=== PATIENT | male | born 1970 | race Two or more races ===

== ENCOUNTER 2017-09-16 17:07 | Emergency (ER) | payer SELFPAY ==
[~2017-09-16] VITALS: Ht 157.5 cm; Wt 74.8 kg
--- NOTE | 2017-09-16 17:10 | NUR ---
PT GENARO FROM THE [facility] TOER BED 11. HERE FOR ETOH. NO OBVIOUS TRAUMA NOTED. PLACED ON MONITOR. STABLE VITALS. AWAITING MD BISWAS.
--- NOTE | 2017-09-16 17:18 | NUR ---
[employer] NURSE AT BEDSIDE FOR EVAL.
[2017-09-16 17:38] LABS: BASOPHILS % (AUTO) 0.7 % (0.0-2.0); EOSINOPHILS # (AUTO) 0.1 /CMM (0.0-0.7); EOSINOPHILS % (AUTO) 2.1 % (0.0-6.0); HEMATOCRIT 41 % (39-51); HEMOGLOBIN 14.3 g/dL (13.5-17.5); LYMPHOCYTES # (AUTO) 1.8 /CMM (0.8-4.8); LYMPHOCYTES % (AUTO) 34.1 % (20.0-44.0); MEAN CORPUSCULAR HEMOGLOBIN 34 PG (26.0-33.0); MEAN CORPUSCULAR HGB CONC 35 g/dl (31.0-36.0); MEAN CORPUSCULAR VOLUME 97 fL (80-96); MONOCYTES # (AUTO) 0.5 /CMM (0.1-1.30); MONOCYTES % (AUTO) 10.2 % (2.0-12.0); NEUTROPHILS # (AUTO) 2.8 /CMM (1.8-8.9); NEUTROPHILS % (AUTO) 52.9 % (43.0-81.0); PLATELET COUNT (AUTO) 189 /CMM (150-450); RDW COEFFICIENT OF VARIATION 12.6 (11.5-15.0); RED BLOOD CELL COUNT(AUTO) 4.18 MIL/uL (4.5-6.0); WHITE BLOOD COUNT (AUTO) 5.3 K/uL (4.3-11.0)
[2017-09-16 18:01] LABS: CALCIUM, SERUM 8.5 mg/dL (8.5-10.1); CREATININE 0.7 mg/dL (0.6-1.3); POTASSIUM 3.5 mmol/L (3.5-5.1)
[2017-09-16 18:04] LABS: ALBUMIN 3.5 g/dL (3.4-5.0); BILIRUBIN,DIRECT 0.1 mg/dL (0.0-0.2); BILIRUBIN,TOTAL 0.4 mg/dL (0.2-1.0); SALICYLATE 0.3 mg/dL (2.8-20.0); TOTAL PROTEIN, SERUM 8.2 g/dL (6.4-8.2)
--- NOTE | 2017-09-16 19:20 | NUR ---
PT SLEEPING. ON MONITOR W. STABLE VITALS. WILL CONTINUE TO MONITOR.
--- NOTE | 2017-09-16 22:52 | NUR ---
SLEEPING IN BED. ON MONITOR W/ STABLE VITALS. WILL CONTINUE TO MONITOR.
--- NOTE | 2017-09-17 00:30 | NUR ---
PT SLEEPING, BREATHING LOUDLY/EVEN, ARROUSABLE TO VOICE, A/O X 3, NO C/O PAIN, SKIN WARN/DRY, NAD NOTED, CONTINUE TO MONITOR
--- NOTE | 2017-09-17 01:01 | NUR ---
PT AMBUALTED THROUGHOUT ER TO RESTROOM, A/O X 3, BREATHING UNLABORED, NO C/O PAIN, PT VS STABLE
--- NOTE | 2017-09-17 03:45 | NUR ---
PT LAYING FLAT, SLEEPING, BREATHING UNLABORED, ARROUSABLE TO VOICE, NAD NTOED, NO C/O PAIN, AMBULATED TO RESTROOM, NO C/O PAIN, CONTINUE TO MONITOR, UPDATED PT ON PLAN TO D/C
--- NOTE | 2017-09-17 06:20 | NUR ---
PT OK TO DISCHARGE PER DR HAMILTON. Patient discharged to home in stable condition. Written and verbal after care instructions given. Patient verbalizes understanding of instruction.Patient is awake and alert to self, day, and place. PT ambulatory with a steady gait
[2017-09-17 06:21] VITALS: BP 129/72
== END 2017-09-17 06:22 | disposition home or self-care (01) ==
LOC: ER 17:12
DX: F10.129 Alcohol abuse with intoxication, unspecified (principal)
CPT/HCPCS: 36415; 80048; 80076; 80329; 85025; 99284; A4606; G0480 ×2; J7060; Z7610